=== PATIENT | male | born 1980 ===

== ENCOUNTER → 2016-08-13 12:56 | Day surgery (SDC) | payer OTHER ==
[~2016-08-13 12:56] MED LIST: Buffered Lidocaine 1% SYRIN* 3 ML/SYR SYRINGE INTRADERM ONE; Bupivacaine 0.25% SDV* 30 ML ONE; Dexamethasone IV* 4 MG/ML 1 ML (4 MG) ONE; Famotidine IV* 10 MG/ML 2 ML (20 mg) IV ONE; Famotidine IV* 10 MG/ML 2 ML (20 mg) ONE; KETAMINE HCL* 50 MG/ML 10 ML VIAL ONE; Ketorolac INJ* 30 MG/ML 1 ML VIAL ONE; Lidocaine 2% PF * 5 ML VIAL ONE; Midazolam* 1 MG/ML 5 ML VIAL (5 MG) ONE; Morphine INJ* 2 MG/ML 1 ML SYRINGE IV PRN; Ondansetron INJ* 2 MG/ML VIAL ONE; PROCHLORPERAZINE INJ 5 MG/ML 2 ML VIAL IV PRN; Propofol* 10 MG/ML 20 ML BTL IV PUSH ONE; Scopolamine 1.5 mg* PATCH TRANSDERM PRN; Scopolomine PATCH Remove* 1 NOTE MISC PATCH OFF ONE; ceFAZolin 2 GM PREMIX(*) 2 GM/50 ML BAG IVPB ONE; fentaNYL* 50 MCG/ML 2 ML VIAL (100 MCG VIAL) IV PRN; fentaNYL* 50 MCG/ML 2 ML VIAL (100 MCG VIAL) ONE; methylPREDNISolone ACETATE 80* 80 MG/ML 1 ML VIAL ONE; oxyCODONE/Acetamin 5/325 MG* TAB PO PRN
[2016-08-13 16:32] VITALS: BP 135/84
--- NOTE | 2016-08-15 03:19 | OP ---
DATE OF OPERATION: 08/13/16 [facility] DATE OF : 84 SURGEON: Devon Brown MD INFORMATION TECH: MISHA Banuelos. An clinical physician assistant was needed for the entirety of the case to help with positioning, retraction, and was utilized throughout all portions of the case. ANESTHESIOLOGIST: Dr. Parker. ANESTHESIA: General interscalene block. PRE-OP DIAGNOSES: Left shoulder partial thickness rotator cuff tear, bicipital tendonitis, and acromioclavicular joint arthritis. POST-OP DIAGNOSIS: Left shoulder partial thickness rotator cuff tear, bicipital tendonitis, and acromioclavicular joint arthritis. OPERATIVE PROCEDURE: 1. Left shoulder arthroscopy with extensive glenohumeral debridement including debridement of the rotator cuff. 2. Subacromial decompression. 3. Distal clavicle excision. 4. Subpectoral biceps tenodesis. 5. Subacromial injection of Depo-Medrol. IMPLANTS USED: One 2.8 mm Q-Fix by [employer]. COMPLICATIONS: None. ESTIMATED BLOOD LOSS: Minimal. INDICATION: Luther Thompson is a 36-year-old male who sustained a work related injury to his shoulder several months ago, who has failed conservative management including physical therapy and injections. After an extensive discussion of the risks and benefits of surgical versus nonoperative treatment, he elected to proceed with a possible rotator cuff repair, subpectoral biceps tenodesis, distal clavicle excision and decompression. Risks were discussed and include but are not limited to bleeding, infection, damage to nerves, vessels, surrounding structures, wound nonhealing, persistent pain, incomplete relief of symptoms, scarring, stiffness, risk of anesthesia, risk of DVT. He has elected to proceed. DESCRIPTION OF PROCEDURE: The patient was greeted in the preoperative area by the attending surgeon. Correct extremity was marked and consent was confirmed. The patient then underwent interscalene nerve block in the preanesthesia area , which he tolerated without difficulty, after which the patient was brought back to the operating suite and he was placed in the right lateral decubitus position on the operating table. He was intubated from that position. An axillary roll was placed. He was secured with pegs and his left arm was draped unsterile with 10 pounds of traction. Left shoulder was prepped and draped in the usual sterile fashion beginning with chlorhexidine soap, scrub, and alcohol wipe and a final prep of ChloraPrep. After appropriate surgical pause indicating site, side, procedure, and administration of antibiotics, a standard postero-lateral incision was made sharply with the 11 blade. The scope was introduced into the joint. The joint was examined. The rotator cuff was found to have partial thickness tearing, but it was found to be less than 5%. The biceps was intact, but the superior labrum was torn and peeled back from its insertion. The anterior portal was made in an outside-in fashion and a cannula was placed. A shaver was used to debride the anteroposterior labrum was well as to the superior labrum until range of motion and has positive peel-back sign. The biceps were examined and found to have inflammation along the groove. This was then tenotomized and the stump was debrided back. The glenohumeral joint had grade 0 to 1 changes. The inferior recess was intact. The infraspinatus was intact. Supraspinatus was examined and found to be intact. There was damage to the mary, however. The undersurface of the rotator cuff was then debrided back to the small unstable fibers, which was close to where the biceps mary was. This tendon was then marked for later identification and probing on the subacromial side. While it was being marked, it was found to have good thickness and good quality to it. The scope was removed from the joint and all fluid and debris was removed from the joint. The scope was repositioned in the subacromial space. Subacromial space was identified. There was a moderate amount of bursa that was present. It was very adherent to the rotator cuff. The lateral portal was made in an [id number]. The shaver was used to debride back the bursa, which was significant posteriorly. The undersurface of the acromion was identified. This was then skeletonized using an electrocautery device, it demonstrated to have a moderate spur. This was then debrided back using the 4- 0 oval felice. Once the acromioplasty was completed, all loose fibrin debris was removed and attention was directed to the distal clavicle. The AC joint was visualized and found to have abundant arthritis and joint space narrowing. The felice was brought into the anterior portal and 8 mm of distal clavicle was then carefully removed under arthroscopic visualization, this was then taken through range of motion and the clavicle was depressed and found to have no areas of impingement. All loose fluid and debris were removed. Final images were obtained. The rotator cuff was probed and the previously marked PDS suture was visualized and found to be in good quality. Rotator cuff, there was no evidence of partial thickness or any kind of tearing on the dorsal side. Decision was made to not do a repair. Our attention was directed to the biceps. The bed was air planed to the left side. The anterior aspect of the shoulder was prepped again with ChloraPrep. A 15 blade was used to make an incision in line with the biceps tendon. The soft tissue was carefully dissected using Metzenbaum scissors until the fascia was identified. Then the remainder of the dissection was done bluntly. The pec tendon was identified and retracted proximally. The biceps was then palpated. The right angle clamp was used to remove the biceps from the groove and brought through the wound. The groove was then prepped in the usual fashion with electrocautery device, the small round rasp and the osteotome to allow for bony bleeding bed. The Q-Fix 2.8 drill guide was then used to drill unicortically. The anchor was then deployed with excellent purchase. The sutures were then passed through the tendon approximately 1 cm proximal to the musculotendinous junction. This was passed in a José Miguel Lavon type configuration. The excess biceps was then sharply excised and the biceps was shuttled back into the wound. The wounds were copiously irrigated. The portals were closed with 0 nylon. The anterior wound was closed in layers with 2-0 Vicryl and 3-0 Monocryl. Sterile dressings were applied. The subacromial space was injected with 80 mg of Depo-Medrol and 5 cc of Marcaine and the anterior wound was injected with 20 cc of 0.25% Marcaine plain. Sterile dressings were applied. A Cryo/Cuff and UltraSling were applied. He was awoken from anesthesia and transferred to the PACU in stable condition. POSTOPERATIVE PLAN: He will be non-weightbearing. He will be in the sling for approximately 4 weeks. He will be discharged with pain medication and antibiotics. He will be out of work during this time. DVT prophylaxis considered, but deferred due to no previous personal or family history. I will see the patient back in 10 to 14 days. [id number]/[facility] #: [id number] MTDD
== END | disposition home or self-care (01) ==
LOC: OR 12:56
PROVIDERS: ATTEND Orthopaedic Surgery
DX: S46.012A Strain of muscle(s) and tendon(s) of the rotator cuff of left shoulder, initial encounter (principal); S46.102A Unspecified injury of muscle, fascia and tendon of long head of biceps, left arm, initial encounter; M19.212 Secondary osteoarthritis, left shoulder; F17.210 Nicotine dependence, cigarettes, uncomplicated; X50.0XXA Overexertion from strenuous movement or load, initial encounter; Y93.H3 Activity, building and construction; Y92.9 Unspecified place or not applicable; Y99.0 Civilian activity done for income or pay
CPT/HCPCS: C1776; J0690; J1040; J1100; J1885; J2250; J2405; J2704; J3010